=== PATIENT | male | born 1980 | race Caucasian/White ===

== ENCOUNTER 2016-05-22 12:13 | Emergency (ER) | payer SELFPAY ==
[~2016-05-22] VITALS: Ht 172.7 cm; Wt 75.0 kg
[~2016-05-22 12:13] MED LIST: CYCL1TAB29 PO; HYDR-3133 PO; NAPR500T PO
[2016-05-22 12:15] VITALS: BP 126/76; PULSE 97; RESP 12; TEMP 98.4; O2SAT 99
--- NOTE | 2016-05-22 14:54 | PD ---
HPI Chief Complaint: Pain: Acute or Chronic Time Seen by Provider: 14:54 Travel History International Travel<30 days: No Contact w/Intl Traveler<30days: No Traveled to known affect area: No History of Present Illness HPI 35-year-old male presents to the emergency department for evaluation right ankle pain and swelling that started 4-5 days ago without traumatic injury. Patient states these same symptoms occur every 6-7 months. He will normally take a pain pill and it will feel better within a few days. Patient states that he took his father's Dilaudid and states he has leftover Dilaudid as well. He states he took 16 mg of Dilaudid by mouth to feel better, but states he felt so good that he is able to run on it. However, symptoms then again worsened. He denies any fevers or chills. He has no chronic medical problems and takes no prescribed medications currently. Patient states it hurts to move his ankle. Patient denies any other complaints at this time. Patient denies any IV drug use. He states the last time he used IV drugs was 6 years ago. 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 ) Social History Alcohol Use: Yes (OCCASIONALLY ) Tobacco Use: Yes Substance Use: Yes (remote history of ivdu) Allergies-Medications (Allergen,Severity, Reaction): Coded Allergies: Acetaminophen (Verified Allergy, Severe, SWELLING, 05/22/16) Penicillin (Verified Allergy, Severe, Anaphylaxis, 05/22/16) Narcan (Verified Allergy, Unknown, Respiratory Failure, 05/22/16) Reported Meds & Prescriptions Reported Meds & Active Scripts Active Reported [subutex] 8 Mg SL Dilaudid (Hydromorphone HCl) 8 Mg Tab 8 Mg PO DIRECTED PRN Review of Systems Except as stated in HPI: all other systems reviewed are Neg Physical Exam Narrative GENERAL: Well-developed well-nourished male patient, Afebrile. SKIN: Warm and dry. There is very mild erythema to the right lateral ankle and foot. No warmth noted. HEAD: Normocephalic. Atraumatic. EYES: No scleral icterus. No injection or drainage. NECK: Supple, trachea midline. No JVD or lymphadenopathy. CARDIOVASCULAR: Regular rate and rhythm without murmurs, gallops, or rubs. Right pedal pulse is 2+. Capillary refill is less than 2 seconds to the digits of the right foot. RESPIRATORY: Breath sounds equal bilaterally. No accessory muscle use. Lungs sounds are clear to auscultation. GASTROINTESTINAL: Abdomen soft, non-tender, nondistended. MUSCULOSKELETAL: No cyanosis, or edema. Patient has tenderness over the diffuse right ankle with swelling noted. He can flex and extend the ankle, but has limited range of motion and pain with movement. There is no evidence of septic joint on exam. BACK: Nontender without obvious deformity. No CVA tenderness. Data Data Last Documented VS Vital Signs Date Time Temp Pulse Resp B/P Pulse Ox O2 Delivery O2 Flow Rate FiO2 05/22/16 12:15 98.4 97 12 126/76 99 Room Air Orders Ankle, Complete ([id number]) (05/22/16 ) Ketorolac Inj (Toradol Inj) (05/22/16 15:00) MDM Medical Decision Making Medical Screen Exam Complete: Yes Emergency Medical Condition: Yes Medical Record Reviewed: Yes Interpretation(s) x-ray right ankle - CONCLUSION: Diffuse soft tissue swelling. No acute fracture. Differential Diagnosis Ankle sprain versus ankle fracture versus dislocation versus gouty arthritis versus unlikely septic joint Narrative Course 35-year-old male presents to the emergency department for evaluation of right ankle pain and swelling for 4-5 days. Patient states this occurs to him every 6 -7 months and has been happening for several years. There is no evidence of septic joint on exam. Symptoms are consistent with possible gout. X-ray of the right ankle is ordered and pending. X-ray of the right ankle shows soft tissue swelling, but no acute fracture. I did not see any evidence of septic joint on exam and unlikely due to recurring symptoms approximately every 6 months. I think symptoms are most consistent with gout. Patient will be provided Simon bandage for support. He'll be discharged with a prescription for indomethacin. Due to very mild erythema, I also will cover him with a prescription for Keflex. He is encouraged to monitor closely return for any acute worsening of symptoms. Patient is agreeable to this plan. The patient was discharged in stable condition with instructions, including return instructions and follow up instructions. Diagnosis Primary Impression: Right ankle pain Qualified Code: M25.571 - Acute right ankle pain Additional Impression: Gout attack Qualified Code: M10.9 - Acute gout of right ankle, unspecified cause Referrals: Primary Care Physician 2 days Patient Instructions: General Instructions, Gout (ED) Additional Instructions: Elevate. Ice for 20 mins 4-5 times daily. Take Indomethacin as directed as needed. Take Keflex as directed until gone. Follow up with your primary care physician. Return to the emergency department for any acute, worsening of symptoms. Med/Other Pt SpecificInfo: Prescription(s) given Scripts Sulfamethoxazole-Trimethoprim (Bactrim DS)800-160 Mg Tab1 Tab PO BID #20 TAB Ref 0 Prov:Ava Mantilla 05/22/16 Indomethacin 50 Mg Cap50 Mg PO TID PRN (PAIN SCALE 1 TO 10) #21 CAP Ref 0 Take with food, milk, or antacids to decrease stomach adverse effects. Prov:Ava Mantilla 05/22/16 Disposition: 01 DISCHARGE HOME Condition: Stable Ava Mantilla May 22, 2016 14:54
[2016-05-22] MEDS ORDERED: subutex SL (14:55)
[2016-05-22] MEDS ORDERED: DILA8TAB4 PO (14:55)
[2016-05-22] MEDS ORDERED: KETOROLAC TROMETHAMINE 60 MG/2 ML (IM) VIAL IM ONE (15:00)
--- NOTE | 2016-05-22 15:25 | RADRPT ---
EXAM DATE/TIME: 05/22/2016 15:17 [facility] COMPARISON: CHEST PA & LAT, March 25, 2016, 17:15. INDICATIONS : Right ankle pain, no known trauma MEDICAL HISTORY : None. SURGICAL HISTORY : None. ENCOUNTER: Initial ACUITY: 4 - 6 days PAIN SCORE: 10/10 LOCATION: Right ankle FINDINGS: The exam demonstrates soft tissue swelling diffusely about the ankle mortise. The alignment is anatom ic. No acute fracture is seen. CONCLUSION: Diffuse soft tissue swelling. No acute fracture. José Alonso MD on May 22, 2016 at 15:22 Board Certified Radiologist. This report was verified electronically.
[2016-05-22] MEDS ORDERED: INDO50CA PO (15:45)
[2016-05-22] MEDS ORDERED: BACT800T5 PO (15:45)
[2016-05-23] MEDS ORDERED: BUPR8SUB SL (16:28)
== END 2016-05-22 16:15 | disposition home or self-care (01) ==
LOC: NEPB 12:13
DX: M25.571 Pain in right ankle and joints of right foot (principal); M10.9 Gout, unspecified; Z72.0 Tobacco use
CPT/HCPCS: 73610; 96372; 99283; J1885

== ENCOUNTER 2016-07-23 14:05 | Emergency (ER) | payer SELFPAY ==
[~2016-07-23 14:05] MED LIST changes: +BACT800T5 PO; +BUPR8SUB SL; -CYCL1TAB29 PO; +DILA8TAB4 PO; -HYDR-3133 PO; +INDO50CA PO; -NAPR500T PO
[2016-07-23 14:09] VITALS: BP 109/77; PULSE 68; RESP 12; TEMP 98.6; O2SAT 99
--- NOTE | 2016-07-23 14:50 | PD ---
Physical Exam Time Seen by Provider: 14:48 Narrative Pt presents for staple removal from his anterior left thigh from a chain saw incident about 15 days ago. Denies fever or chills currently. Is still on keflex. Besided chronic pain, pt has no significant medical history. Data Data Last Documented VS Vital Signs Date Time Temp Pulse Resp B/P Pulse Ox O2 Delivery O2 Flow Rate FiO2 07/23/16 14:09 98.6 68 12 109/77 99 MDM Medical Record Reviewed: Yes Supervised Visit with QUINTON: No Narrative Course 35 year old presents to ED for removal of skinny from left anterior thigh. Appears well. VSS Condition: Stable Eleni Nova Jul 23, 2016 14:50
--- NOTE | 2016-07-23 15:04 | PD ---
HPI Chief Complaint: Wound/Suture/Staple Re-Check Time Seen by Provider: 15:02 Travel History International Travel<30 days: No Contact w/Intl Traveler<30days: No Traveled to known affect area: No History of Present Illness HPI 35-year-old male presents to the emergency department requesting staple removal to a wound to his left anterior thigh from a chain saw accident approximately 15 days ago. He was seen at [facility] the day of the accident. He is currently taking Keflex. Denies fever, chills, nausea, vomiting. Denies paresthesias, loss of sensation, decreased range motion, decreased strength to the affected extremity. No other medical complaints. No other modifying factors or associated signs and symptoms. 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 ) Social History Alcohol Use: Yes (OCCASIONALLY ) Tobacco Use: Yes Substance Use: Yes (remote history of ivdu) Allergies-Medications (Allergen,Severity, Reaction): Coded Allergies: Acetaminophen (Verified Allergy, Severe, SWELLING, 07/23/16) Penicillin (Verified Allergy, Severe, Anaphylaxis, 07/23/16) Narcan (Verified Allergy, Unknown, Respiratory Failure, 07/23/16) Reported Meds & Prescriptions Reported Meds & Active Scripts Active Bactrim DS (Sulfamethoxazole-Trimethoprim) 800-160 Mg Tab 1 Tab PO BID Indomethacin 50 Mg Cap 50 Mg PO TID PRN Take with food, milk, or antacids to decrease stomach adverse effects. Reported Buprenorphine (Buprenorphine HCl) 8 Mg Subl 8 Mg SL ONCE Dilaudid (Hydromorphone HCl) 8 Mg Tab 8 Mg PO DIRECTED PRN Review of Systems Except as stated in HPI: all other systems reviewed are Neg Physical Exam Narrative GENERAL: Well-nourished, well-developed male patient, in no acute distress; afebrile, nontoxic-appearing SKIN: Warm and dry. Wound to left anterior thigh is well approximated with skinny intact; without erythema, edema, drainage. No signs of infection. HEAD: Atraumatic. Normocephalic. EYES: Pupils equal and round. No scleral icterus. No injection or drainage. ENT: Mucosa pink and moist. Airway patent. NECK: Trachea midline. CARDIOVASCULAR: Regular rate. RESPIRATORY: No accessory muscle use. GASTROINTESTINAL: Flat. MUSCULOSKELETAL: No obvious deformities. No clubbing. No cyanosis. No edema. NEUROLOGICAL: Awake and alert. Oriented 3. No obvious cranial nerve deficits. Motor grossly within normal limits. Normal speech. PSYCHIATRIC: Appropriate mood and affect; insight and judgment normal. Data Data Last Documented VS Vital Signs Date Time Temp Pulse Resp B/P Pulse Ox O2 Delivery O2 Flow Rate FiO2 07/23/16 14:09 98.6 68 12 109/77 99 MDM Medical Decision Making Medical Screen Exam Complete: Yes Emergency Medical Condition: Yes Medical Record Reviewed: Yes Differential Diagnosis Encounter for staple removal, wound recheck, medical clearance Narrative Course 35-year-old male presents for staple removal to wound to his left anterior thigh. Wound is well approximated with skinny intact and without signs of infection. [place] removed. Patient tolerated well. Patient is currently taking Keflex. Instruct the patient to continue Keflex. Patient verbalizes understanding and agreement with treatment plan. Patient is medically cleared and stable for discharge. Discussed reasons to return to the emergency department. Instructed patient to follow up with primary care provider. Patient agrees with treatment plan. The patients vital signs are stable and the patient is stable for outpatient follow-up and treatment. Patient discharged home, stable and in no acute distress. Diagnosis Primary Impression: Encounter for staple removal Referrals: Primary Care Physician Patient Instructions: Acute Wound Care (ED), General Instructions Departure Forms: Tests/Procedures Additional Instructions: Ibuprofen or Tylenol instructed nothing for pain and information Follow-up with primary care provider Return to the emergency department immediately for worsening symptoms Med/Other Pt SpecificInfo: No Change to Meds, No Meds Exist/No RX given Disposition: 01 DISCHARGE HOME Condition: Stable Lara Das Jul 23, 2016 15:03
== END 2016-07-23 15:07 | disposition home or self-care (01) ==
LOC: NEPK 14:05
DX: S71.102D Unspecified open wound, left thigh, subsequent encounter (principal); W29.3XXD Contact with powered garden and outdoor hand tools and machinery, subsequent encounter; Z48.02 Encounter for removal of sutures
CPT/HCPCS: 99281

== ENCOUNTER 2017-04-03 07:22 | Emergency (ER) | payer SELFPAY ==
[~2017-04-03] VITALS: Ht 177.8 cm; Wt 72.8 kg
[2017-04-03] MEDS ORDERED: IOHEXOL 350 MG/ML 10 ML VIAL (for RAD DIAG) IVCONTRAST ONE (07:23)
[2017-04-03 07:25] VITALS: BP 129/84; PULSE 90; RESP 16; TEMP 97.8; O2SAT 99
--- NOTE | 2017-04-03 07:39 | PD ---
HPI Chief Complaint: Skin Problem Time Seen by Provider: 07:29 Travel History International Travel<30 days: No Contact w/Intl Traveler<30days: No Traveled to known affect area: No History of Present Illness HPI The patient is a 36-year-old male who presents to the emergency department for right facial swelling. The patient states he had a "zit" on the right side of the face, just lateral to the mouth, 2 days ago which she "pop ". The patient states he did have some swelling over the affected area was able to express some drainage from the wound. He was to sleep last night and when he awakened this morning the right side of his face was swollen and painful. He does know some surrounding erythema over the affected area. He does know some circular scabbing skin lesions on the left hand that occurred approximately 5 weeks ago. He denies any history of chronic MRSA infections. He does have a history of remote IV drug abuse, quit using approximately 18 months ago. He does have a history of hepatitis C, denies any history of diabetes or HIV. He denies any fever, chills, or sweats. Symptoms are moderate , exacerbated after popping a "zit", and there are no current alleviating factors. 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 ) Social History Alcohol Use: Yes (OCCASIONALLY ) Tobacco Use: Yes Substance Use: Yes (remote history of ivdu) Allergies-Medications (Allergen,Severity, Reaction): Coded Allergies: acetaminophen (Unverified Allergy, Severe, SWELLING, 04/03/17) penicillin G (Unverified Allergy, Severe, Anaphylaxis, 04/03/17) naloxone (Unverified Allergy, Unknown, Respiratory Failure, 04/03/17) Reported Meds & Prescriptions Reported Meds & Active Scripts Active No Active Prescriptions or Reported Medications Review of Systems Except as stated in HPI: all other systems reviewed are Neg General / Constitutional: No: Fever Eyes: No: Visual changes HENT: Positive: Other Gastrointestinal: No: Nausea, Vomiting Musculoskeletal: No: Myalgias, Arthralgias Skin: Positive Other Physical Exam Narrative GENERAL: Awake, alert, pleasant 36-year-old male who appears his stated age and is in no acute respiratory distress. SKIN: Focused skin assessment warm/dry. Circular scabbing lesions on the extensor surface the left hand consistent with impetigo. Significant edema noted over the right maxilla with some erythema just lateral to the angle of the mouth on the right. HEAD: Atraumatic. Normocephalic. EYES: Pupils equal and round. No scleral icterus. No injection or drainage. EOMs are intact. ENT: No nasal bleeding or discharge. Mucous membranes pink and moist. No tenderness upon palpation of the lower dentition. NECK: Trachea midline. No JVD. CARDIOVASCULAR: Regular rate and rhythm. No murmur appreciated. RESPIRATORY: No accessory muscle use. Clear to auscultation. Breath sounds equal bilaterally. GASTROINTESTINAL: Abdomen soft, non-tender, nondistended. MUSCULOSKELETAL: No obvious deformities. No clubbing. No cyanosis. No edema. NEUROLOGICAL: Awake and alert. No obvious cranial nerve deficits. Motor grossly within normal limits. Normal speech. PSYCHIATRIC: Appropriate mood and affect; insight and judgment normal. Data Data Last Documented VS Vital Signs Date Time Temp Pulse Resp B/P (MAP) Pulse Ox O2 Delivery O2 Flow Rate FiO2 04/03/17 07:25 97.8 90 16 129/84 (99) 99 Orders Orders Complete Blood Count With Diff (04/03/17 07:33) Basic Metabolic Panel (Bmp) (04/03/17 07:33) Blood Culture (04/03/17 07:33) Ct Facial Bones W Iv Contrast (04/03/17 ) Sodium Chlor 0.9% 1000 Ml Inj (Ns 1000 M (04/03/17 07:45) Clindamycin 600 Mg/Ns Premix (Cleocin 60 (04/03/17 07:45) Ketorolac Inj (Toradol Inj) (04/03/17 07:45) Lactic Acid (04/03/17 08:01) Iohexol 350 Inj (Omnipaque 350 Inj) (04/03/17 07:23) Labs Laboratory Tests Test 04/03/17 07:55 04/03/17 08:08 White Blood Count 10.2 TH/MM3 Red Blood Count 5.31 MIL/MM3 Hemoglobin 15.3 GM/DL Hematocrit 46.8 % Mean Corpuscular Volume 88.1 FL Mean Corpuscular Hemoglobin 28.8 PG Mean Corpuscular Hemoglobin Concent 32.7 % Red Cell Distribution Width 12.7 % Platelet Count 268 TH/MM3 Mean Platelet Volume 8.4 FL Neutrophils (%) (Auto) 73.6 % Lymphocytes (%) (Auto) 17.2 % Monocytes (%) (Auto) 6.9 % Eosinophils (%) (Auto) 0.7 % Basophils (%) (Auto) 1.6 % Neutrophils # (Auto) 7.5 TH/MM3 Lymphocytes # (Auto) 1.7 TH/MM3 Monocytes # (Auto) 0.7 TH/MM3 Eosinophils # (Auto) 0.1 TH/MM3 Basophils # (Auto) 0.2 TH/MM3 CBC Comment DIFF FINAL Differential Comment Blood Urea Nitrogen 14 MG/DL Creatinine 0.83 MG/DL Random Glucose 89 MG/DL Calcium Level 8.7 MG/DL Sodium Level 136 MEQ/L Potassium Level 3.6 MEQ/L Chloride Level 102 MEQ/L Carbon Dioxide Level 30.0 MEQ/L Anion Gap 4 MEQ/L Estimat Glomerular Filtration Rate 105 ML/MIN Lactic Acid Level 1.0 mmol/L MDM Medical Decision Making Medical Screen Exam Complete: Yes Emergency Medical Condition: Yes Medical Record Reviewed: Yes Interpretation(s) Laboratory Tests Test 04/03/17 07:55 04/03/17 08:08 White Blood Count 10.2 TH/MM3 Red Blood Count 5.31 MIL/MM3 Hemoglobin 15.3 GM/DL Hematocrit 46.8 % Mean Corpuscular Volume 88.1 FL Mean Corpuscular Hemoglobin 28.8 PG Mean Corpuscular Hemoglobin Concent 32.7 % Red Cell Distribution Width 12.7 % Platelet Count 268 TH/MM3 Mean Platelet Volume 8.4 FL Neutrophils (%) (Auto) 73.6 % Lymphocytes (%) (Auto) 17.2 % Monocytes (%) (Auto) 6.9 % Eosinophils (%) (Auto) 0.7 % Basophils (%) (Auto) 1.6 % Neutrophils # (Auto) 7.5 TH/MM3 Lymphocytes # (Auto) 1.7 TH/MM3 Monocytes # (Auto) 0.7 TH/MM3 Eosinophils # (Auto) 0.1 TH/MM3 Basophils # (Auto) 0.2 TH/MM3 CBC Comment DIFF FINAL Differential Comment Blood Urea Nitrogen 14 MG/DL Creatinine 0.83 MG/DL Random Glucose 89 MG/DL Calcium Level 8.7 MG/DL Sodium Level 136 MEQ/L Potassium Level 3.6 MEQ/L Chloride Level 102 MEQ/L Carbon Dioxide Level 30.0 MEQ/L Anion Gap 4 MEQ/L Estimat Glomerular Filtration Rate 105 ML/MIN Lactic Acid Level 1.0 mmol/L CT of the facial bones with contrast reveals extensive right facial soft tissue swelling extending from the preseptal region of the right orbit to the mandible. There is no evidence of discrete mass or abscess. Findings are characteristic of cellulitis. No evidence of acute sinusitis. No evidence of distracted bone changes suspicious for osteomyelitis. Multiple caries. Differential Diagnosis Differential diagnosis includes infected wound, abscess, cellulitis, MRSA. Narrative Course IV was established, labs are drawn and sent, and the patient was placed on cardiac telemetry monitoring and continuous pulse oximetry monitoring. Blood cultures and lactic acid were sent to lab. The patient was administered clindamycin 600 mg intravenously, Toradol 30 mg intravenously, 1 L of IV fluid. CT of the facial bones with IV contrast was ordered to evaluate for possible abscess. The patient's white count is normal. Lactic acid is 1.0. BUN and creatinine are unremarkable. CT reveals characteristics of cellulitis but no discharge of bone changes suspicious for osteomyelitis and no evidence of discrete mass or abscess. The patient's white count lactic or normal. Therefore, the patient will be placed on clindamycin and Bactrim, is advised to return in 48-72 hours for reevaluation. Return if symptoms worsen or progress. Diagnosis Primary Impression: Cellulitis of face Patient Instructions: General Instructions Additional Instructions: Medications as directed. Follow-up with a primary physician. Return Friday between 8 AM and 4 PM for reevaluation. Return sooner if symptoms worsen or progress. Med/Other Pt SpecificInfo: Prescription(s) given Scripts Sulfamethoxazole-Trimethoprim (Bactrim DS) 800-160 Mg Tab 1 TAB PO BID for Infection, #20 TAB 0 Refills Prov: Reji Govea MD 04/03/17 Clindamycin (Cleocin) 150 Mg Cap 300 MG PO Q6H for Infection for 10 Days, #80 CAP 0 Refills Prov: Reji Govea MD 04/03/17 Disposition: 01 DISCHARGE HOME Condition: Stable Reji Govea MD Apr 03, 2017 07:39
[2017-04-03] MEDS ORDERED: SODIUM CHLOR 0.9% 1000 ML INJ 1,000 ML IV ONE (07:45)
[2017-04-03] MEDS ORDERED: CLINDAMYCIN 600 MG/NS PREMIX 50 ML IV ONE (07:45)
[2017-04-03] MEDS ORDERED: KETOROLAC TROMETHAMINE 30 MG/ML (IVP) VIAL IV PUSH ONE (07:45)
[2017-04-03 08:05] LABS: AUTOMATED NEUTROPHIL # 7.5 TH/MM3 (1.8-7.7); BASOPHIL # 0.2 TH/MM3 (0-0.2); BASOPHIL % 1.6 % (0.0-2.0); EOSINOPHIL # 0.1 TH/MM3 (0-0.4); EOSINOPHIL % 0.7 % (0.0-4.0); HEMATOCRIT 46.8 % (39.0-51.0); HEMOGLOBIN 15.3 GM/DL (13.0-17.0); LYMPH % 17.2 % (9.0-44.0); LYMPHOCYTE # 1.7 TH/MM3 (1.0-4.8); MEAN CELL VOLUME 88.1 FL (80.0-100.0); MEAN CORPUSCULAR HEMOGLOBIN 28.8 PG (27.0-34.0); MEAN CORPUSCULAR HGB CONC 32.7 % (32.0-36.0); MEAN PLATELET VOLUME 8.4 FL (7.0-11.0); MONO % 6.9 % (0.0-8.0); MONOCYTE # 0.7 TH/MM3 (0-0.9); NEUT % 73.6 % (16.0-70.0); PLATELET COUNT 268 TH/MM3 (150-450); RED BLOOD COUNT 5.31 MIL/MM3 (4.50-5.90); RED CELL DISTRIBUTION WIDTH 12.7 % (11.6-17.2); WHITE BLOOD COUNT 10.2 TH/MM3 (4.0-11.0)
[2017-04-03 08:23] LABS: CALCIUM 8.7 MG/DL (8.5-10.1)
[2017-04-03 08:27] LABS: CREATININE 0.83 MG/DL (0.60-1.30)
--- NOTE | 2017-04-03 09:24 | RADRPT ---
EXAM DATE/TIME: 04/03/2017 08:45 [facility] COMPARISON: No previous studies available for comparison. INDICATIONS : Right side facial swelling and pain. IV CONTRAST: 70 cc Omnipaque 350 (iohexol) IV RADIATION DOSE: 30.12 CTDIvol (mGy) MEDICAL HISTORY : Hepatitis C. Intravenous drug use, heart murmur. SURGICAL HISTORY : [place] teeth removed. ENCOUNTER: Initial ACUITY: 2 days PAIN SCALE: 8/10 LOCATION: Right facial TECHNIQUE: Volumetric scanning of the facial bones was performed. Using automated exposure control and adjustme nt of the mA and/or kV according to patient size, radiation dose was kept as low as reasonably achiev able to obtain optimal diagnostic quality images. DICOM format image data is available electronicall y for review and comparison. FINDINGS: Moderate to severe soft tissue swelling is identified throughout the right side of face. Soft tissue swelling begins along the inframedial margin of the right orbit and extends caudally to the mandible. Soft tissue swelling in the region remains preseptal in location. There is no evidence of intraorbit al involvement. Significant subcutaneous fat induration is noted. There are no clearly destructive mandibular or maxillary bone changes. The teeth however demonstrated large cavities. Paranasal sinuses are clear. There is no evidence of significant lymphadenopathy or discrete mass. CONCLUSION: 1. Extensive right facial soft tissue swelling extending from the preseptal region of the right orbit to the mandible. There is no evidence of discrete mass or abscess. Findings are characteristic of ce llulitis. 2. No evidence of acute sinusitis. 3. No evidence of destructive bone changes suspicious for osteomyelitis. 4. Multiple caries. Sriram Tucker MD on April 03, 2017 at 9:13 Board Certified Radiologist. This report was verified electronically.
[2017-04-03] MEDS ORDERED: CLIN150 PO (09:29)
[2017-04-03] MEDS ORDERED: BACT800T5 PO (09:29)
[2017-04-03 09:34] VITALS: BP 129/85; PULSE 89; RESP 16; O2SAT 97
== END 2017-04-03 09:44 | disposition home or self-care (01) ==
LOC: PHED 07:22
DX: L03.211 Cellulitis of face (principal); B19.20 Unspecified viral hepatitis C without hepatic coma; Z72.0 Tobacco use
CPT/HCPCS: 70487; 80048; 83605; 85025; 87040; 96361; 96365; 96375; 99285; J1885; J7030; Q9967